=== PATIENT | female | born 1960 | race African-American/Black ===

== ENCOUNTER 2021-07-06 09:09 | Emergency (ER) | payer OTHER ==
[~2021-07-06] VITALS: Ht 165.1 cm; Wt 59.0 kg
[2021-07-06] MEDS ORDERED: ACETAMINOPHEN 325MG TABLET PO ONE (11:00)
[2021-07-06] MEDS ORDERED: ACET-2708 MT (12:12)
[2021-07-06] MEDS ORDERED: IBUP-2028 MT (12:12)
[2021-07-06 12:25] VITALS: BP 148/78
== END 2021-07-06 12:25 | disposition home or self-care (01) ==
LOC: ER 09:09
DX: S62.522A Displaced fracture of distal phalanx of left thumb, initial encounter for closed fracture (principal); X58.XXXA Exposure to other specified factors, initial encounter; Y93.89 Activity, other specified; Y92.89 Other specified places as the place of occurrence of the external cause; Y99.8 Other external cause status
CPT/HCPCS: 29125; 73130; 99283; A4565